=== PATIENT | male | born 1960 | race Caucasian/White ===

== ENCOUNTER 2019-10-07 05:27 | Emergency (ER) | payer SELFPAY ==
[~2019-10-07] VITALS: Ht 177.8 cm; Wt 80.0 kg
[2019-10-07 06:03] VITALS: BP 157/94
[2019-10-07 06:15] LABS: BASOPHILS # (AUTO) 0.05 x10^3/uL (0-0.1); BASOPHILS % (AUTO) 1 % (0-1); EOSINOPHILS # (AUTO) 0.06 x10^3/uL (0-0.4); EOSINOPHILS % (AUTO) 1 % (1-7); LYMPHOCYTES # (AUTO) 1.36 x10^3/uL (1-3.4); LYMPHOCYTES % (AUTO) 14 % (22-44); MD NO; MEAN CORPUSCULAR HEMOGLOBIN 34.2 pg (27.5-34.5); MEAN CORPUSCULAR HGB CONC 33.5 g/dL (33.2-36.2); MEAN PLATELET VOLUME 7.6 fL (7.4-10.4); MONOCYTES # (AUTO) 0.51 x10^3/uL (0.2-0.8); MONOCYTES % (AUTO) 5 % (2-9); NEUTROPHILS # (AUTO) 7.43 x10^3/uL (1.8-6.8); NEUTROPHILS % (AUTO) 79 % (42-75); PLATELET COUNT 346 x10^3/uL (130-400); RED BLOOD COUNT 4.39 x10^6/uL (4.38-5.82); RED CELL DISTRIBUTION WIDTH 13.1 % (9.4-14.8)
--- NOTE | 2019-10-07 06:18 | NUR ---
Patient BIB [facility] for SI. Patient states he wanted to jump in front of a car because he could not find his . He got on a bus from [place] to come to [place] to look for his . When he was picked up by [facility], he heard that the police found his . Patient voluntarily came to the hospital but states he does not want to hurt himself now because his has been found. Patient has a history of bipolar. Patient is in NAD. Respirations even and unlabored. Patient states he has left flank pain when he coughs and deep breathes. He states he coughs frequently due to the amount that he smokes. Patient denies CP, N/V. Patient belongings collected, placed in 3 bags, and put in the locked cabinet.
[2019-10-07 06:26] LABS: CHLORIDE 105 mmol/L (98-107)
[2019-10-07 06:32] LABS: ALANINE AMINOTRANSFERASE 28 U/L (12-78); ALBUMIN 3.5 g/dL (3.4-5.0); ALKALINE PHOSPHATASE 96 U/L (45-117); ANION GAP 8 mmol/L (5-15); BILIRUBIN,TOTAL 0.4 mg/dL (0.2-1.0); CALCIUM 8.1 mg/dL (8.5-10.1); CREATININE 0.82 mg/dL (0.7-1.3); SALICYLATE LEVEL 4.6 mg/dL (2.8-20.0); TOTAL PROTEIN 7.7 g/dL (6.4-8.2)
--- NOTE | 2019-10-07 06:55 | NUR ---
REPORT RECEIVED FROM ROSALINE DEUTSCH.
--- NOTE | 2019-10-07 06:56 | NUR ---
MEAL TRAY ORDERED AT THIS TIME.
--- NOTE | 2019-10-07 07:25 | NUR ---
URINAL AT BEDSIDE. PT AWARE OF UA.
--- NOTE | 2019-10-07 08:07 | NUR ---
MEAL TRAY PROVIDED. PT STILL SLEEPING IN [facility]. RESPS EVEN AND UNLABORED.
--- NOTE | 2019-10-07 10:26 | NUR ---
Patient given discharge instructions and they have confirmed that they understand the instructions.
== END 2019-10-07 10:34 | disposition home or self-care (01) ==
LOC: ED 10:25
DX: F10.220 Alcohol dependence with intoxication, uncomplicated (principal); Y90.7 Blood alcohol level of 200-239 mg/100 ml
CPT/HCPCS: 36415; 71045; 80053; 80307; 85025; 99284